=== PATIENT | female | born 1990 | race Caucasian/White ===

== ENCOUNTER 2024-10-17 18:18 | Emergency (ER) | payer MEDICAID, SELFPAY ==
[2024-10-17 19:07] VITALS: BP 118/79; PULSE 78; RESP 20; TEMP 36.8; O2SAT 100; BMI 31.4
--- NOTE | 2024-10-17 19:19 | PD.EDRME ---
Rapid Medical Screening Exam E Arrival date/time: 10/17/24 18:18 Chief Complaint: General Adult/Misc Complain Time Seen by Provider: 10/17/24 18:22 Vital signs: Vital Signs Temperature 98.3 F 10/17/24 19:07 Pulse Rate 78 10/17/24 19:07 Respiratory Rate 20 10/17/24 19:07 Blood Pressure 118/79 10/17/24 19:07 Pulse Oximetry (%) 100 10/17/24 19:07 Oxygen Delivery Method Room Air 10/17/24 19:07 E Narrative: Patient concerned she has a parasitic infection. Reports feeling worms crawling on her neck, in her mouth and in area. Denies drug use
== END 2024-10-17 19:32 | disposition left against medical advice (07) ==
LOC: SERX 19:30
PROVIDERS: Emergency Provider Emergency Medicine
DX: B89 Unspecified parasitic disease (principal); Z53.29 Procedure and treatment not carried out because of patient's decision for other reasons
CPT/HCPCS: 99281

== ENCOUNTER 2024-10-27 18:45 | Emergency (ER) | payer MEDICAID, SELFPAY ==
[2024-10-27 18:46] VITALS: BMI 31.7
[2024-10-27 19:10] VITALS: BP 113/67; PULSE 78; RESP 20; TEMP 36.7; O2SAT 97
--- NOTE | 2024-10-27 19:15 | XR_ITS ---
Examination: PA lateral chest 2 views Technique: AP lateral chest 2 views Exam date and time: October 27, 2024 1936 hrs. Indications: Chest pain coughing beginning 2 days ago. Findings: Normal heart size. Lungs are clear. The osseous structures are intact Impression: No active disease
--- NOTE | 2024-10-27 19:15 | PD.EDRME ---
Rapid Medical Screening Exam E Arrival date/time: 10/27/24 18:45 33 year old female present to ED for c/o flu like sx, chest pain. sore throat I have greeted and performed a focused initial assessment of this patient. A comprehensive ED assessment and evaluation of the patient, analysis of all test results, and completion of the medical decision making process will be conducted by additional ED providers. Chief Complaint: Chest Pain Time Seen by Provider: 10/27/24 19:11 Vital signs: Vital Signs Temperature 98.0 F 10/27/24 19:10 Pulse Rate 78 10/27/24 19:10 Respiratory Rate 20 10/27/24 19:10 Blood Pressure 113/67 10/27/24 19:10 Pulse Oximetry (%) 97 10/27/24 19:10 Oxygen Delivery Method Room Air 10/27/24 19:10
[2024-10-27 19:29] LABS: Basophils % (Auto) 0 % (0-2.5); Eosinophils # (Auto) 0.1 Thou/mm3 (0.0-0.5); Eosinophils % (Auto) 2 % (0-10); Hematocrit 36.1 % (36.0-46.0); Hemoglobin 11.7 g/dL (12.0-16.0); Immature Granulocytes % (Auto) 0 % (0-0); Lymphocytes # (Auto) 2.6 Thou/mm3 (1.0-4.8); Lymphocytes % (Auto) 38 % (10-50); Mean Corpuscular HGB Conc 32.4 g/dl (31.0-37.0); Mean Corpuscular Hemoglobin 28.5 pg (25.0-35.0); Mean Corpuscular Volume 88 fL (80-100); Monocytes # (Auto) 0.4 Thou/mm3 (0.0-0.8); Monocytes % (Auto) 6 % (0-12); Neutrophils # (Auto) 3.7 Thou/mm3 (1.8-7.7); Neutrophils % (Auto) 54 % (37-80); Nucleated Red Blood Cell % 0 /100 WBC (0); Platelet Count 272 Thou/mm3 (140-440); RDW Standard Deviation 44.9 fL (36.4-46.3); Red Blood Count 4.11 Miln/mm3 (4.00-5.20); White Blood Count 6.9 Thou/mm3 (3.6-11.0)
[2024-10-27 19:47] LABS: Alanine Aminotransferase 7 U/L (10-49); Albumin/Globulin Ratio 1.2 (1.2-2.2); Alkaline Phosphatase 67 U/L (46-116); Anion Gap 4 (7-16); Aspartate Amino Transferase 15 U/L (0-34); BUN/Creatinine Ratio 15 Ratio (12-20); Bilirubin,Total 0.2 mg/dL (0.3-1.2); Blood Urea Nitrogen 12 mg/dL (9-23); Chloride 104 mMol/L (98-107); Creatinine (Component) 0.8 mg/dL (0.6-1.3); Estimated Creatinine Clearance 104.8 mL/min (>60); Globulin 3.3 gm/dL (2.3-3.5); Glucose 80 mg/dL (74-106); Osmolality,Calculated 279 (275-295); Potassium 4.2 mMol/L (3.4-5.1); Sodium 141 mMol/L (136-145); Total Protein 7.3 gm/dL (5.7-8.2); Troponin I < 0.002 ng/mL (0.0-0.045); eGFR > 60 See Note
[2024-10-27 19:55] LABS: HCG,Qualitative Serum Negative
[2024-10-27 20:13] LABS: Strep A Rapid Negative (Negative)
--- NOTE | 2024-10-27 21:10 | PD.EDADULT ---
ED General RME/HPI General Chief complaint: Chest Pain Stated complaint: CHEST THIGHTNESS, THROAT PAIN Time Seen by Provider: 10/27/24 19:11 Arrival date/time: 10/27/24 18:45 RME / HPI RME / HPI narrative: 33-year-old female patient came in for evaluation regarding flulike symptoms. Patient has been having cough, sore throat, for the last few days, severity moderate. Patient told me that she has been in the hospital several times due to being admitted in ICU. Patient denies any fever denies any other complaints no medications taken prior travel. Related Data Previous Rx's ?Medication ?Instructions ?Recorded benzonatate 200 mg capsule 200 mg PO TID PRN cough #30 caps 10/27/24 ibuprofen 800 mg tablet 800 mg PO TID PRN pain #30 tabs 10/27/24 Allergies Allergy/AdvReac Type Severity Reaction Status Date / Time No Known Allergies Allergy Verified 10/27/24 18:46 Review of Systems Review of Systems Narrative Review of Systems: Review of system reviewed and within normal limits except mentioned in HPI ED Exam Narrative Physical exam: VITAL SIGNS: Reviewed. GENERAL APPEARANCE: Alert and interactive, follows commands, no acute distress, HEAD AND FACE: Non-traumatic. ENT: PERRL, pink conjunctivitis, eyelid no trauma, Mucous membrane moist. NECK: Supple, nontender, no nuchal rigidity. CHEST: No tenderness, no crepitus, no paradoxical movement, no retractions. LUNGS: Clear, well ventilated, symmetric, no rales, no wheezing, no ronchi, no stridor, good breath sounds bilaterally. HEART: Regular rate, regular rhythm, no murmur, no gallops. ABDOMEN: Soft, positive bowel sounds, nondistended, no guarding, nontender, no rebound, no masses, RECTAL: Deferred. GENITAL: Deferred. NEUROLOGICAL: Gross motor function intact sensory function intact, Appropriate for age. MUSCULOSKELETAL: low back nontender, full range of motion. EXTREMITIES: Nontender, full range of motion. SKIN: Color pink, dry, no rash, no lacerations, no abrasions, no contusions. LYMPHATICS: Deferred. Course Quality Measures none Orders Category Date Time Status Bedside COVID-19 Antigen Test NOW Care 10/27/24 19:15 Completed Bedside Influenza A&B Antigen Test NOW Care 10/27/24 19:15 Completed XR chest 2V Stat Exams 10/27/24 19:15 Completed CBC Stat Lab 10/27/24 19:23 Completed CMP [Comprehensive Metabolic Panel] Stat Lab 10/27/24 19:23 Completed HCG,Qualitative Serum Stat Lab 10/27/24 19:23 Completed Strep A Rapid Stat Lab 10/27/24 19:31 Completed Troponin I Stat Lab 10/27/24 19:23 Completed Vital Signs Vital signs: Vital Signs Temperature 98.0 F 10/27/24 19:10 Pulse Rate 78 10/27/24 19:10 Respiratory Rate 20 10/27/24 19:10 Blood Pressure 113/67 10/27/24 19:10 Pulse Oximetry (%) 97 10/27/24 19:10 Oxygen Delivery Method Room Air 10/27/24 19:10 MDM Patient data External records reviewed:: None Clinical information provided by:: patient Social determinants that could affect healthcare access:: none Patient has the following chronic illnesses:: Review of system reviewed and within normal limits except mentioned in HPI How is presenting disease/condition affected by chronic disease/condition?: exacerbated by Evaluation data The following diagnostics were reviewed and interpreted by me:: lab results and radiology exam(s) Lab and/or radiology exams considered but not ordered:: None Interpretation Summary: See above in MDM Medications Medications considered but not ordered:: None Medication administrations:: None Consultations Consultation(s) initiated? (list below): No Diagnosis Differential Diagnosis ED Complaint MDM: URI, cough, COVID-19 influenza Most likely diagnosis given after review of the tests above:: Cough, sore throat Admission Indicated Admission indicated?: not indicated Explain why admission is indicated or not indicated:: Stable Admission Request Was there a request for admission?: No Disposition Plan Disposition Plan: Discharge Discharge Attestation Discharge Attestation: The patient was given an opportunity to ask questions and understood the discharge instructions. Discharge instructions specifically effects, indications for sooner follow up or return to the emergency department, and the expected course of current diagnosis. Patient condition: Stable Medical Decision Making MDM Narrative MDM Narrative: 33-year-old female patient came in for evaluation regarding flulike symptoms. Patient has been having cough, sore throat, for the last few days, severity moderate. Patient told me that she has been in the hospital several times due to being admitted in ICU. Patient denies any fever denies any other complaints no medications taken prior travel. Patient's workup all came back unremarkable. Including negative for COVID influenza. Chest x-ray also came back unremarkable. Results discussed with the patient. Negative for strep also. Patient appears nontoxic and hemodynamically stable. Patient discharged home and instructed to follow-up with primary care provider in 24 to 48 hours. Instructed to return to the emergency department immediately if worsening of symptoms Differential Diagnosis Differential Diagnosis: URI, cough, COVID-19 influenza Lab Data 10/27/24 19:23 10/27/24 19:23 Labs: Lab Results 10/27/24 10/27/24 Range/Units 19:23 19:31 WBC 6.9 (3.6-11.0) Thou/mm3 RBC 4.11 (4.00-5.20) Miln/mm3 Hgb 11.7 L (12.0-16.0) g/dL Hct 36.1 (36.0-46.0) % MCV 88 (80-100) fL MCH 28.5 (25.0-35.0) pg MCHC 32.4 (31.0-37.0) g/dl RDW Std Deviation 44.9 (36.4-46.3) fL Plt Count 272 (140-440) Thou/mm3 Neut % (Auto) 54 (37-80) % Lymph % (Auto) 38 (10-50) % [place] % (Auto) 6 (0-12) % Eos % (Auto) 2 (0-10) % Baso % (Auto) 0 (0-2.5) % Neut # (Auto) 3.7 (1.8-7.7) Thou/mm3 Lymph # (Auto) 2.6 (1.0-4.8) Thou/mm3 [place] # (Auto) 0.4 (0.0-0.8) Thou/mm3 Eos # (Auto) 0.1 (0.0-0.5) Thou/mm3 Baso # (Auto) 0.0 (0.0-0.2) Thou/mm3 Immature Gran # (Auto) 0.00 (0.00-0.00) Thou/mm3 Absolute Nucleated RBC 0.00 (0.00-0.00) Thou/mm3 Immature Gran % 0 (0-0) % Nucleated RBC % 0 (0) /100 WBC Sodium 141 (136-145) mMol/L Potassium 4.2 (3.4-5.1) mMol/L Chloride 104 (98-107) mMol/L Carbon Dioxide 33.0 H (20.0-31.0) mMol/L Anion Gap 4 L (7-16) BUN 12 (9-23) mg/dL Creatinine 0.8 (0.6-1.3) mg/dL Estim Creat Clear Calc 104.8 (>60) mL/min eGFR > 60 (60 - ) See Note BUN/Creatinine Ratio 15 (12-20) Ratio Glucose 80 (74-106) mg/dL Calculated Osmolality 279 (275-295) Calcium 9.0 (8.3-10.6) mg/dL Corrected Calcium 9.0 (8.5-10.1) mg/dL Total Bilirubin 0.2 L (0.3-1.2) mg/dL AST 15 (0-34) U/L ALT 7 L (10-49) U/L Alkaline Phosphatase 67 (46-116) U/L Troponin I < 0.002 (0.0-0.045) ng/mL Total Protein 7.3 (5.7-8.2) gm/dL Albumin 4.0 (3.5-5.0) gm/dL Globulin 3.3 (2.3-3.5) gm/dL Albumin/Globulin Ratio 1.2 (1.2-2.2) HCG, Qual Negative Group A Strep Rapid Negative (Negative) Discharge Plan Plan Patient Disposition: HOME (Self Care) Disposition Comment: Stable Prescriptions/Referrals Prescriptions/Med Rec: New ibuprofen 800 mg tablet 800 mg PO TID PRN (Reason: pain) Qty: 30 0RF benzonatate 200 mg capsule 200 mg PO TID PRN (Reason: cough) Qty: 30 0RF Referrals: Mateus Baker MD [Primary Care Provider] - In 1 week Problem List Clinical Impression: Cough Patient/Caregiver Discharge Instructions Discharge Activity: activity as tolerated Education Materials: Coughing Techniques Additional Instructions: Thank you for the opportunity for serving you today. You are stable for discharged . You are advised to: Follow-up with your PCP in 1 to 2 days Return to ED for worsening of symptoms Increase oral fluids Take medication as prescribed Print Language: Ukrainian Stand Alone Forms: [facility] Award Info., Patient Portal Info Letter PA/APPLICATION RELEASE MANAGER Supervising Physician PA/APPLICATION RELEASE MANAGER Supervising Physician: MD Alan
== END 2024-10-27 21:14 | disposition home or self-care (01) ==
PROVIDERS: Physician Assistant; Emergency Provider Emergency Medicine; PCP Family Medicine
DX: R05.9 Cough, unspecified (principal); J02.9 Acute pharyngitis, unspecified
CPT/HCPCS: 36415; 71046; 80053; 84484; 84703; 85025; 87400; 87651; 87811; 99283

== ENCOUNTER 2025-04-02 09:51 | Emergency (ER) | payer MEDICAID, SELFPAY ==
[2025-04-02 09:53] VITALS: PULSE 64; RESP 22; O2SAT 99; BMI 25.7
--- NOTE | 2025-04-02 09:55 | EDNOTE_ITS ---
Nausea/Vomit./Diarrhea-RME/HPI General Chief complaint: Nausea/Vomiting/Diarrhea Stated complaint: N/V/D Time Seen by Provider: 04/02/25 09:53 Arrival date/time: 04/02/25 09:51 Limitations: no limitations RME / HPI RME / HPI Narrative: DR. BO MAIN ED EVALUATION: 34 year old female presents to the Emergency Department [facility] with complaints of nausea, vomiting, diarrhea since last night. She states she recently got out of [facility] and has not been able to get her methadone. She went to the clinic to get her methadone but they did not give it to her so she called an ambulance. Last used heroin was 2 days ago. No other symptoms reported at this time. Related Data Previous Rx's ?Medication ?Instructions ?Recorded benzonatate 200 mg capsule 200 mg PO TID PRN cough #30 caps 10/27/24 ibuprofen 800 mg tablet 800 mg PO TID PRN pain #30 t abs 10/27/24 lorazepam 0.5 mg tablet (Ativan) 0.5 mg PO TID PRN melissa sea and 04/02/25 vomiting #14 tabs ondansetron HCl 4 mg tablet 4 mg PO Q8H 4 days #12 tab s 04/02/25 Allergies Allergy/AdvReac Type Severity Reaction Status Date / Time No Known Allergies Allergy Verified 10/27/24 18:46 Review of Systems Review of Systems Systems Reviewed: All systems reviewed, normal except as documented Past Medical History Past Medical History CARDIAC: Negative Congestive Heart Failure RESPIRATORY: Negative Chronic Obstructive Pulmonary Disease (COPD) GENITOURINARY: Negative Renal Disease ENDOCRINE: Negative Diabetes Mellitus Type 1 or Diabetes Mellitus Type 2 Social History SMOKING STATUS: Current some day smoker SUBSTANCE USE: heroin ED Exam General Limitations: Present no limitations General appearance: Present alert and in no apparent distress Head Head exam: Present atraumatic, normocephalic and normal inspection Eye Eye exam: Present normal appearance, PERRL and EOMI ENT ENT exam: Present normal exam, normal oropharynx and mucous membranes moist Neck Neck exam: Present normal inspection, full ROM and trachea midline Chest Chest inspection: Present normal inspection and symmetric chest wall rise Respiratory Respiratory exam: Present normal lung sounds bilaterally Cardiovascular Cardiovascular exam: Present regular rate, normal rhythm and normal heart sounds Abdominal Exam Abdominal exam: Present soft and normal bowel sounds Extremities Exam Extremities exam: Present normal inspection and full ROM Back Exam Back exam: Present normal inspection and full ROM Neurological Exam Neurological exam: Present alert, oriented X3 and CN II-XII intact Psychiatric Psychiatric exam: Present normal affect and normal mood Skin Skin exam: Present warm, dry, intact and normal color Course Quality Measures none Orders Category Date Time Status Junior Art Director NOW Care 04/02/25 09:53 Active Insert IV NOW Care 04/02/25 09:53 Active CBC Stat Lab 04/02/25 10:17 Completed Comprehensive Metabolic Panel Stat Lab 04/02/25 10:17 Completed Lipase Stat Lab 04/02/25 10:17 Completed Prothrombin Time with INR Stat Lab 04/02/25 10:17 Completed Famotidine Inj [Pepcid Inj] Med 04/02/25 09:55 Discontinued 20 mg IVP X1 ONE LORazepam [Ativan Inj] Med 04/02/25 11:18 Discontinued 0.5 mg IVP X1 ONE LORazepam [Ativan Inj] Med 04/02/25 09:53 Discontinued 1 mg IVP X1 ONE Ondansetron Inj [Zofran Inj] Med 04/02/25 09:53 Discontinued 4 mg IVP X1 ONE Ondansetron Inj [Zofran Inj] Med 04/02/25 11:18 Discontinued 4 mg IVP X1 ONE Potassium Chloride [K-Dur] Med 04/02/25 11:17 Discontinued 40 meq PO X1 ONE Sodium Chloride 0.9% 1000 ml [Ns] 1,000 ml Med 04/02/25 09:53 Discontinued IV 999 mls/hr Vital Signs Vital signs: Vital Signs Temperature 98.3 F 04/02/25 09:58 Pulse Rate 67 04/02/25 09:58 Respiratory Rate 16 04/02/25 09:58 Blood Pressure 118/81 04/02/25 09:58 Pulse Oximetry (%) 100 04/02/25 09:58 Oxygen Delivery Method Room Air 04/02/25 09:58 Nausea/Vomiting/Diarrhea MDM Narrative MDM Narrative:: I, Tessa Carcamo, am scribing for and in the presence of Dr. Bo. Potassium was low, 3.1. Hypokalemia. Will give her some potassium, discharge, and give instructions to eat bananas and other potassium rich foods. Patient data External records reviewed:: [facility] previous records and EMS form Clinical information provided by:: patient and EMS Social determinants that could affect healthcare access:: substance use (heroin) Patient has the following chronic illnesses:: Heroin abuse How is presenting disease/condition affected by chronic disease/condition?: no chronic disease Evaluation data The following diagnostics were reviewed and interpreted by me:: lab results Lab and/or radiology exams considered but not ordered:: none Interpretation Summary: Potassium was low, 3.1. Hypokalemia. Will give her some potassium, discharge, and give instructions to eat bananas and other potassium rich foods. Medications / Prescriptions Medications / Prescriptions considered but not ordered:: none Medication administrations:: Medication Administration History Discontinued Medications Famotidine (Famotidine Inj 10 Mg/Ml Vial 2 Ml) 20 mg IVP X1 ONE Stop: 04/02/25 09:56 Last Admin: 04/02/25 10:12 Dose: 20 mg Documented By: DEE DEE Sodium Chloride (Ns) 1,000 mls @ 999 mls/hr IV .Q1H1M ONE Stop: 04/02/25 10:53 Last Admin: 04/02/25 10:11 Dose: 999 mls/hr Documented By: DEE DEE Lorazepam (Lorazepam 2 Mg/Ml Vial) 1 mg IVP X1 ONE Stop: 04/02/25 09:54 Last Admin: 04/02/25 10:15 Dose: 1 mg Documented By: DEE DEE Lorazepam (Lorazepam 2 Mg/Ml Vial) 0.5 mg IVP X1 ONE Stop: 04/02/25 11:19 Ondansetron HCl (Ondansetron Inj 2 Mg/Ml Inj 2 Ml) 4 mg IVP X1 ONE; Protocol Stop: 04/02/25 09:54 Last Admin: 04/02/25 10:12 Dose: 4 mg Documented By: DEE DEE Ondansetron HCl (Ondansetron Inj 2 Mg/Ml Inj 2 Ml) 4 mg IVP X1 ONE; Protocol Stop: 04/02/25 11:19 Potassium Chloride (Potassium Chloride 20 Meq Tabcr) 40 meq PO X1 ONE Stop: 04/02/25 11:18 see above Consultations Consultation(s) initiated? (list below): No Diagnosis Nausea Differential Diagnosis: gastroenteritis, drug-induced nausea and vomiting and dehydration Most likely diagnosis given after review of the tests above:: Opioid withdrawal hypokalemia Admission Indicated Admission indicated?: not indicated Admission Request Was there a request for admission?: No Disposition Plan Disposition Plan: Discharge Discharge Attestation Discharge Attestation: The patient and all family members were given an opportunity to ask questions and understood the discharge instructions. Discharge instructions specifically effects, indications for sooner follow up or return to the emergency department, and the expected course of current diagnosis. Patient condition: Stable Discharge Plan Plan Patient Disposition: HOME (Self Care) Patient condition on transfer: Stable Prescriptions/Referrals Prescriptions/Med Rec: No Action ibuprofen 800 mg tablet 800 mg PO TID PRN (Reason: pain) Qty: 30 0RF benzonatate 200 mg capsule 200 mg PO TID PRN (Reason: cough) Qty: 30 0RF Referrals: No Primary/Family,Physician [Primary Care Provider] - In 1 week Problem List Clinical Impression: Acute hypokalemia, Opioid withdrawal, Hypokalemia Patient/Caregiver Discharge Instructions Diet Instructions: Eat bananas and other potassium rich foods. Education Materials: ED Hypokalemia, ED Opioid Withdrawal Additional Instructions: Please follow-up with your primary care physician within 2-3 days. Return to the Emergency Department as needed. Print Language: Mongolian Stand Alone Forms: Gayathri Award Info., Patient Portal Info Letter
[2025-04-02 09:58] VITALS: BP 118/81; PULSE 67; PULSE 68; RESP 16; TEMP 36.8; O2SAT 100
[2025-04-02] MEDS: SODIUM CHLORIDE 0.9% 1000 ML 1,000 ML 999 ML IV (10:11)
[2025-04-02] MEDS: ONDANSETRON INJ 2 MG/ML INJ 2 ML 4 MG IVP ×2 (10:12→11:45)
[2025-04-02] MEDS: FAMOTIDINE INJ 10 MG/ML VIAL 2 ML 20 MG IVP (10:12)
[2025-04-02] MEDS: LORazepam 2 MG/ML VIAL 1 MG IVP (10:15)
[2025-04-02 10:29] LABS: Basophils % (Auto) 0 % (0-2.5); Eosinophils % (Auto) 0 % (0-10); Hematocrit 35.1 % (36.0-46.0); Hemoglobin 11.8 g/dL (12.0-16.0); Immature Granulocytes % (Auto) 0 % (0-0); Immature Granulocytes Auto 0.02 Thou/mm3 (0.00-0.00); Lymphocytes # (Auto) 1.9 Thou/mm3 (1.0-4.8); Lymphocytes % (Auto) 20 % (10-50); Mean Corpuscular HGB Conc 33.6 g/dl (31.0-37.0); Mean Corpuscular Hemoglobin 29.5 pg (25.0-35.0); Mean Corpuscular Volume 88 fL (80-100); Monocytes # (Auto) 0.5 Thou/mm3 (0.0-0.8); Monocytes % (Auto) 5 % (0-12); Neutrophils # (Auto) 6.8 Thou/mm3 (1.8-7.7); Neutrophils % (Auto) 74 % (37-80); Nucleated Red Blood Cell % 0 /100 WBC (0); Platelet Count 267 Thou/mm3 (140-440); RDW Standard Deviation 43.9 fL (36.4-46.3); White Blood Count 9.2 Thou/mm3 (3.6-11.0)
[2025-04-02 10:45] LABS: Prothrombin Time 11.1 Seconds (9.0-12.2)
[2025-04-02 10:55] LABS: Alanine Aminotransferase 12 U/L (10-49); Albumin/Globulin Ratio 1.2 (1.2-2.2); Alkaline Phosphatase 79 U/L (46-116); Anion Gap 9 (7-16); Aspartate Amino Transferase 15 U/L (0-34); BUN/Creatinine Ratio 17 Ratio (12-20); Bilirubin,Total 0.2 mg/dL (0.3-1.2); Blood Urea Nitrogen 12 mg/dL (9-23); Calcium 8.6 mg/dL (8.3-10.6); Calcium (Corrected) 8.6 mg/dL (8.5-10.1); Carbon Dioxide 27.5 mMol/L (20.0-31.0); Chloride 106 mMol/L (98-107); Creatinine (Component) 0.7 mg/dL (0.6-1.3); Estimated Creatinine Clearance 107.3 mL/min (>60); Globulin 3.4 gm/dL (2.3-3.5); Glucose 59 mg/dL (74-106); Lipase 33 U/L (12-53); Osmolality,Calculated 280 (275-295); Potassium 3.1 mMol/L (3.4-5.1); Sodium 142 mMol/L (136-145); Total Protein 7.4 gm/dL (5.7-8.2); eGFR > 60 See Note
[2025-04-02] MEDS: POTASSIUM CHLORIDE 10% 20 MEQ/15 ML UDC 40 MEQ PO (11:56)
[2025-04-02 12:00] VITALS: BP 111/70; PULSE 62; RESP 16; TEMP 36.7; O2SAT 99
[2025-04-02 13:39] VITALS: BP 105/63; PULSE 87; RESP 16; TEMP 36.8; O2SAT 99
== END 2025-04-02 13:40 | disposition home or self-care (01) ==
PROVIDERS: Emergency Provider Family Medicine
DX: E87.6 Hypokalemia (principal); F11.23 Opioid dependence with withdrawal
CPT/HCPCS: 36415; 80053; 83690; 85025; 85610; 96361; 96374; 96375; 96376; 99284; J2060; J2405; J3490; J7030; A9270